=== PATIENT | female | born 1980 ===

== ENCOUNTER 2017-03-27 10:06 | Emergency (ER) | payer OTHER ==
[2017-03-27 10:10] VITALS: BP 123/81; PULSE 87; RESP 20; TEMP 98.7; O2SAT 96
[2017-03-27] MEDS ORDERED: Acetaminophen 650mg/20.3ml solution UD PO STA (10:41)
--- NOTE | 2017-03-27 10:50 | C.PDOC ---
History Of Present Illness 36 year old female with no past medical history presents with a sore throat which started 2 weeks ago. She saw a doctor in [place] who gave her a Z pack which she took and completed on Friday. A throat swab was not performed. She reports the pain went away but still comes on goes worse on the right side of her throat. She had a cough before which resolved with the antibiotics. She has been using Cepacol lozenges to help the pain. She denies fever/chills, headaches , changes in vision, sinus pressure, nasal congestion/discharge, chest pain, cough, SOB, muscle aches or any other complaints. Time Seen by Provider: 03/27/17 10:40 Chief Complaint (Nursing): ENT Problem History Per: Patient History/Exam Limitations: no limitations Onset/Duration Of Symptoms: Days Current Symptoms Are (Timing): Still Present Location Of Pain: Throat Sick Contacts (Context): None Associated Symptoms: Sore Throat. denies: Fever, Chills, Cough, Sputum, Neck Pain, Sinus Drainage, Myalgias, Nasal Congestion, Nausea, Vomiting, Diarrhea Severity: Mild Pain Scale Rating Of: 2 Recent travel outside of the [place]: No Past Medical History Vital Signs: Last Vital Signs Temp 98.7 F 03/27/17 10:08 Pulse 87 03/27/17 10:08 Resp 20 03/27/17 10:08 BP 123/81 03/27/17 10:08 Pulse Ox 96 03/27/17 10:50 - Medical History PMH: No Chronic Diseases Surgical History: No Surg Hx Family History: States: Unknown Family Hx - Social History Hx Tobacco Use: No Hx Alcohol Use: No Hx Substance Use: Yes (marijuana use) - Immunization History Hx Tetanus Toxoid Vaccination: Yes Hx Influenza Vaccination: Yes Hx Pneumococcal Vaccination: Yes Review Of Systems Constitutional: Negative for: Fever, Chills, Weakness, Malaise Eyes: Negative for: Vision Change ENT: Positive for: Throat Pain. Negative for: Ear Pain, Ear Discharge, Nose Discharge, Nose Congestion, Throat Swelling Cardiovascular: Negative for: Chest Pain, Palpitations Respiratory: Negative for: Cough, Shortness of Breath Gastrointestinal: Negative for: Nausea, Vomiting, Abdominal Pain, Diarrhea, Constipation Genitourinary: Negative for: Dysuria Musculoskeletal: Negative for: Neck Pain, Shoulder Pain Skin: Negative for: Rash, Lesions Neurological: Negative for: Weakness, Numbness Physical Exam - Physical Exam Appears: Well, Non-toxic, No Acute Distress Skin: Normal Color, Warm, Dry, No Pale Head: Atraumatic, Normacephalic Nose: Normal, No Discharge Oral Mucosa: Moist, No Dry Tongue: Normal Appearing Lips: Normal Appearing Teeth: Normal Dentition Gingiva: Normal Appearing Throat: Normal, No Erythema, No Exudate Neck: Normal Cardiovascular: Rhythm Regular Respiratory: Normal Breath Sounds, No Accessory Muscle Use Gastrointestinal/Abdominal: Bowel Sounds, Soft, No Tenderness ED Course And Treatment O2 Sat by Pulse Oximetry: 96 Medical Decision Making Medical Decision Making: Likely viral pharyngitis appears to be improving. Patient has completed antibiotics. No fever/chills, non tender on exam, no exudates. Disposition - Disposition Referrals: Clinic,Med Surg [Primary Care Provider] - [facility] [Outside] Disposition: HOME/ ROUTINE Disposition Time: 11:06 Condition: GOOD Additional Instructions: Patient is to take Motrin as needed for pain. She is to follow up with her primary care for post visit care. She is to return to the ED if symptoms worsen or she develops fever/chills. Instructions: Pharyngitis (ED) - Clinical Impression Clinical Impression: Viral syndrome, Pharyngitis
== END 2017-03-27 11:25 | disposition home or self-care (01) ==
LOC: SUPCPDRO 10:06 → C.ER 10:06
DX: J02.9 Acute pharyngitis, unspecified (principal); B34.9 Viral infection, unspecified